=== PATIENT | male | born 1955 | race Caucasian/White ===

== ENCOUNTER 2017-04-12 23:37 | Emergency (ER) | payer OTHER ==
[~2017-04-12] VITALS: Ht 172.7 cm; Wt 90.9 kg
[~2017-04-12 23:37] MED LIST: ALBU18HF INHALATION; GUAI473L22 PO; HYDR-3498 PO; LEVO500T72 PO; TAMS-14 PO
[2017-04-12 23:38] VITALS: Ht 172.7 cm; Wt 90.9 kg
[2017-04-13] MEDS ORDERED: traMADol 50 MG TAB PO ONE (02:00)
--- NOTE | 2017-04-13 02:04 | ERD ---
ER Documentation Chief Complaint Chief Complaint fall tonight, c/o left shoulder pain HPI 62-year-old male presents here in emergency department for complaints of left shoulder pain after tripping and falling landing on the left shoulder tonight. Patient was walking the street, small ball was in the way, he tripped on it and landed on the left shoulder. Patient describes the pain as throbbing pain, succession scale, as was upon movement, unable to do full range of motion because of pain. Patient did not take any medications for pain. Patient denies any shortness of breath or cough. Patient denies any chest pain. Patient denies any dyspnea on exertion or dizzy on the lying down. Patient does admit feeling anxious after the incident. ROS All systems reviewed and are negative except as per history of present illness. Medications Home Meds Active Scripts Hydrocodone/Acetaminophen ([place] 5-325 Tablet) 1 Each Tablet, 1 TAB PO Q6H Y for SEVERE PAIN LEVEL 7-10, #20 TAB Prov:LUZ MARINA DOWD NP 04/13/17 Ibuprofen* (Motrin*) 600 Mg Tab, 600 MG PO Q6H Y for PAIN AND OR ELEVATED TEMP, #30 TAB Prov:LUZ MARINA DOWD NP 04/13/17 Guaifenesin-Codeine Phosphate* (Guaifenesin* AC Cough Syrup) 473 Ml Liquid, 5 ML PO Q4H Y for COUGH, #120 ML Prov:ALEX JARVIS NP 04/12/16 Albuterol Sulfate* (Ventolin HFA*) 18 Gm Hfa.aer.ad, 2 PUFF INHALATION Q4H, #1 INHALER Prov:ALEX JARVIS NP 04/12/16 Levofloxacin* (Levaquin*) 500 Mg Tablet, 500 MG PO DAILY for 7 Days, TAB Prov:RAMÍREZ ROMO MD 07/10/15 Hydrocodone Bit-Acetaminophen* ([place]*) 5-325 Mg Tab, 1 TAB PO Q6 Y for PAIN, # 20 TAB May take 2 tabs every 6 hours for severe pain Prov:RAMÍREZ ROMO MD 07/10/15 Tamsulosin Hcl* (Flomax*) 0.4 Mg Cap.er.24h, 0.4 MG PO QPM, #7 CAP Prov:RAMÍREZ ROMO MD 07/10/15 Discontinued Scripts Hydrocodone/Acetaminophen ([place] 10-325 Tablet) 1 Each Tablet, 1 TAB PO Q6H Y for PAIN, #20 TAB Prov:LUZ MARINA DOWD DELAROSA TDarcy ZAMORANO 04/13/17 Allergies Allergies: Uncoded Allergies: SULFA (Allergy, Unknown, 07/10/15) PMhx/Soc Hx Respiratory Disorders: Yes (asthma,) Hx Cardiac Disorders: No Hx Alcohol Use: No Hx Substance Use: No Hx Tobacco Use: No (quit 6 yrs ago; used to smoke pack/day x "years") Smoking Status: Never smoker Physical Exam Vitals Vital Signs Date Time Temp Pulse Resp B/P Pulse Ox O2 Delivery O2 Flow Rate FiO2 04/13/17 03:13 98.3 114 17 138/68 96 Room Air 04/12/17 23:38 98.0 136 20 182/91 99 Physical Exam GENERAL: The patient is well developed and appropriate for usual state of health, in no apparent distress. CHEST: Clear to auscultation bilaterally. There are no rales, wheezes or rhonchi. HEART: Tachycardic heart rate at 110 bpm and regular rhythm. No murmurs, clicks , rubs or gallops. No S3 or S4. ABDOMEN: Soft, nontender and nondistended. Good bowel sounds. No rebound or guarding. No gross peritonitis. No gross organomegaly or masses. No Cummings sign or McBurney point tenderness. BACK: No midline or flank tenderness. EXTREMITIES: Unable to do full range of motion of the left shoulder because of pain, no deformity noted, no redness noted. Equal pulses bilaterally. There is no peripheral clubbing, cyanosis or edema. No focal swelling or erythema. Full range of motion. Grossly neurovascularly intact. NEURO: Alert and oriented. Cranial nerves 2-12 intact. Motor strength in all 4 extremities with 5/5 strength. Sensation grossly intact. Normal speech and gait. SKIN: There is no apparent rash or petechia. The skin is warm and dry. HEMATOLOGIC AND LYMPHATIC: There is no evidence of excessive bruising or lymphedema. No gross cervical, axillary, or inguinal lymphadenopathy. Results 24 hrs Current Medications Medications (Trade) Dose Ordered Sig/Julián Route PRN Reason Start Time Stop Time Status Last Admin Dose Admin Tramadol HCl (Ultram) 50 mg ONCE ONCE PO 04/13/17 02:00 12/5/17 02:01 DC 04/13/17 01:57 Patient was given medication for pain here in emergency department, after treatment, patient verbalized feeling much better. Patient's pain is improved. PROCEDURE: Noncontrast CT examination of the facial bones. CLINICAL INDICATION: Dislocation of the mandible. TECHNIQUE: Noncontrast CT examination of the facial bones, with axial, sagittal and coronal reformatted images. CTDI: 29.67 and DLP: 703.60. DICOM images are provided for interpretation. One or more of the following techniques were employed to reduce the patient's dose and exposure. 1. Computer automated dose reduction technique was employed. 2. Patient dose was reduced by reducing mA and or kV based upon patient weight. 3. Patient dose was reduced by employing iterative technique for generation of images. COMPARISON: None FINDINGS: Anterior dislocation of the bilateral articular mandibular condyles at the bilateral temporal bone, with anterior dislocation measuring about 22 mm on the right and 17 mm on the left. Otherwise, no evident acute fracture. The soft tissues are otherwise unremarkable. IMPRESSION: Anterior dislocation of the bilateral articular mandibular condyles at the bilateral temporal bone. RPTAT: [facility] Physician Tommy Date Time Electronically viewed and signed by Physician Tommy on 04/13/2017 02:34 RS/ CC: LUZ MARINA DOWD NP I Discussed this case with my attending physician, Dr. Mejia, at this time, no symptoms of any compartment syndrome, pain is tolerable, no deformity, no symptoms of neurovascular compromise, he recommended to have patient be on a sling, to see orthopedic doctor within 1-2 days, patient will be given resources , explained this to the patient verbalized understanding. After receiving patients xray report, a sling was applied on the patients right arm. After application of the splint, patient has intact sensation and circulation on distal area of the affected joint. Patient does not complain of numbness or tingling after application of the splint. Patient tolerated procedure well. EKG was done, read by me and is sinus tachycardia 110 bpm_, normal axis, there is no ST changes or changes in the EKG that indicates any cardiac emergencies at this time. Patient's EKG was also reviewed by Dr. Mejia. Impression: no acute findings on EKG Procedures/MDM Medical Decision Making: Patient's pain is most likely consistent with a humerus fracture. There is no suspicion for neurovascular compromise. Patient has intact sensation and circulation of the affected extremity. There is low suspicion for septic arthritis. Patient does not have any fever. Radiology exams of the affected area does not show any dislocation. Disposition: Home. Patient is given prescription for ibuprofen for pain, [place] for severe pain. Patient was advised to elevate the affected area and apply ice on affected area. Patient was advised that if symptoms are worse, numbness, tingling, high fever, unable to move joint, worsening symptoms, to return to emergency department immediately. Otherwise, patient is advised to follow up with the orthopedic doctor 1-2 days. Disclaimer: Inadvertent spelling and grammatical errors are likely due to EHR/ dictation software use and do not reflect on the overall quality of patient care. Also, please note that the electronic time recorded on this note does not necessarily reflect the actual time of the patient encounter. Departure Diagnosis: Primary Impression: Humerus fracture Encounter type: initial encounter Humerus Location: surgical neck Fracture type: closed Fracture morphology: 2-part Fracture alignment: nondisplaced Laterality: right Qualified Code: S42.224A - Closed 2-part nondisplaced fracture of surgical neck of right humerus, initial encounter Condition: Stable Patient Instructions: Fracture, Shoulder Additional Instructions: Patient is given prescription for ibuprofen for pain, [place] for severe pain. Patient was advised to elevate the affected area and apply ice on affected area. Patient was advised that if symptoms are worse, numbness, tingling, high fever, unable to move joint, worsening symptoms, to return to emergency department immediately. Otherwise, patient is advised to follow up with the orthopedic doctor 1-2 days. LUZ MARINA DOWD NP Apr 13, 2017 02:04
--- NOTE | 2017-04-13 02:17 | RADRPT ---
PROCEDURE: XR left shoulder. CLINICAL INDICATION: Left shoulder pain TECHNIQUE: 3 views of the left shoulder were performed. COMPARISON: None. FINDINGS: There is a fracture of the surgical neck region of the humerus with varus deformity. No shoulder dis location is seen. Degenerative changes in thoracic spine. IMPRESSION: There is a fracture of the surgical neck region of the humerus with varus deformity. RPTAT: HJES .Emigdio Calvert MD, MD Date Time Electronically viewed and signed by .Emigdio Calvert MD, on 04/13/2017 02:17 .S/
[2017-04-13] MEDS ORDERED: HYDR-902 PO (02:58)
[2017-04-13] MEDS ORDERED: HYDR-906 PO (02:58)
[2017-04-13] MEDS ORDERED: IBUP-1542 PO (02:58)
[2017-04-13 03:13] VITALS: BP 138/68; PULSE 114; RESP 17; TEMP 98.3
== END 2017-04-13 03:27 | disposition home or self-care (01) ==
LOC: FTE 23:37
DX: S42.224A 2-part nondisplaced fracture of surgical neck of right humerus, initial encounter for closed fracture (principal); J45.909 Unspecified asthma, uncomplicated; R42 Dizziness and giddiness; W01.0XXA Fall on same level from slipping, tripping and stumbling without subsequent striking against object, initial encounter; Y92.9 Unspecified place or not applicable
CPT/HCPCS: 73030; 93005